=== PATIENT | female | born 1955 | race Caucasian/White ===

== ENCOUNTER → 2022-03-23 | Day surgery (SDC) | payer OTHER ==
[~2022-03-23] VITALS: Ht 162.6 cm; Wt 89.5 kg
[2022-03-23 14:03] VITALS: BP 150/64; PULSE 63
--- NOTE | 2022-03-23 14:03 | NUR ---
Patient returns to room 7 per cart from surgery accompanied by Benji SÁNCHEZ and Jonathan Del Valle RN. Patient arouses to verbal stimuli. Right foot dressing clean and dry with post op shoe in place. IV fluids infusing and site is free of redness or swelling. Siderails up x2 and call light in reach.
[2022-03-23 14:18] VITALS: BP 153/77; PULSE 70
--- NOTE | 2022-03-23 14:18 | NUR ---
Continues to rest and denies pain or nausea. Graham wrap dressing clean and dry.
[2022-03-23 14:33] VITALS: BP 147/62; PULSE 63
--- NOTE | 2022-03-23 14:33 | NUR ---
Taking grape juice. Family in room. IV fluids continue to infuse.
--- NOTE | 2022-03-23 15:15 | NUR ---
IV was discontinued and site free of redness or swelling. Bulky alfredo wrap dressing clean and dry. Post op shoe in place. Dismissal instructions given and patient taken to vehicle per wheelchair and assisted into car with dismissal instructions in hand. Patient kept on portable oxygen at 2L.
[2022-03-23 17:15] VITALS: BP 121/95; PULSE 70; TEMP 98.1
== END ==
LOC: SDCO 11:09
DX: T84.84XA Pain due to internal orthopedic prosthetic devices, implants and grafts, initial encounter (principal); Y83.1 Surgical operation with implant of artificial internal device as the cause of abnormal reaction of the patient, or of later complication, without mention of misadventure at the time of the procedure
CPT/HCPCS: J1200; J2704; J3010; J7120

== ENCOUNTER → 2023-09-18 | Outpatient (RCR) | payer OTHER, MEDICARE | END | disposition home or self-care (01) | LOC: COL.CR | DX: J44.9 Chronic obstructive pulmonary disease, unspecified (principal) ==